=== PATIENT | male | born 1970 | race Caucasian/White ===

== ENCOUNTER → 2020-12-23 | Outpatient (CLI) | payer BC | LOC: OPSV 10-28 08:00 | DX: E83.110 Hereditary hemochromatosis (principal) | CPT/HCPCS: 36415; 80076; 82728; 85018; 99195 ==

== ENCOUNTER → 2021-04-16 | Outpatient (CLI) | payer BC | LOC: OPSV 07:48 | DX: E83.110 Hereditary hemochromatosis (principal) | CPT/HCPCS: 36415; 82728; 85018 ==

== ENCOUNTER → 2021-07-21 | Outpatient (CLI) | payer BC | LOC: LAB 07:54 | DX: E83.110 Hereditary hemochromatosis (principal) | CPT/HCPCS: 36415; 82728; 85018; 99195 ==

== ENCOUNTER → 2021-10-19 | Outpatient (CLI) | payer BC | LOC: OPSV 08:16 | DX: E83.110 Hereditary hemochromatosis (principal) | CPT/HCPCS: 36415; 82728; 85018; 99195 ==

== ENCOUNTER → 2022-01-17 | Outpatient (CLI) | payer BC | LOC: OPSV 07:54 | DX: E83.110 Hereditary hemochromatosis (principal) | CPT/HCPCS: 36415; 82728; 85018 ==

== ENCOUNTER → 2022-04-11 | Outpatient (CLI) | payer BC | LOC: OPSV 08:00 | DX: E83.110 Hereditary hemochromatosis (principal) | CPT/HCPCS: 36415; 82728; 85018 ==

== ENCOUNTER → 2022-06-03 | Outpatient (CLI) | payer BC | LOC: KOH-I 15:09 | DX: R13.10 Dysphagia, unspecified (principal) | CPT/HCPCS: 76536 ==

== ENCOUNTER → 2022-07-11 | Outpatient (CLI) | payer BC | LOC: OPSV 04-18 08:00 | DX: E83.110 Hereditary hemochromatosis (principal) | CPT/HCPCS: 36415; 82728; 85018 ==